=== PATIENT | female | born 1975 | race Caucasian/White ===

== ENCOUNTER 2018-05-03 20:43 | Emergency (ER) | payer OTHER ==
[2018-05-03 20:47] VITALS: TEMP 98.3
[2018-05-03] MEDS ORDERED: MORPHINE SULFATE 4 MG/ML SYRINGE IV STA (21:07)
--- NOTE | 2018-05-03 21:16 | ED ---
Abdominal Pain HPI - General Chief Complaint: Abdominal Pain Stated Complaint: Lower left abd pain Time Seen by Provider: 05/03/18 20:52 Source: patient Mode of arrival: ambulatory Limitations: no limitations - History of Present Illness MD Complaint: abdominal pain Onset/Timin -: week(s) Location: LLQ Radiation: none Migration to: no migration Severity: moderate Quality: sharp Consistency: intermittent Improves With: nothing Worsens With: nothing Associated Symptoms: denies other symptoms - Related Data Home Medications Medication Instructions Recorded Confirmed Rosuvastatin [Crestor] 20 mg PO DAILY 11/25/14 05/03/18 Trandolapril [Mavik] 2 mg PO DAILY 11/25/14 05/03/18 metFORMIN HCL 1,000 mg PO BID 11/25/14 05/03/18 INSULIN LISPRO (humaLOG) [humaLOG] 16 units SQ AC-BRKFST 05/03/18 05/03/18 INSULIN LISPRO (humaLOG) [humaLOG] 18 units SQ AC-LUNCH 05/03/18 05/03/18 INSULIN LISPRO (humaLOG) [humaLOG] 20 unit SQ AC-SUPPER 05/03/18 05/03/18 Ibuprofen [Advil] 400 mg PO Q8H 05/03/18 05/03/18 Insulin Glargine [Lantus] 65 unit SQ HS 05/03/18 05/03/18 Allergies Allergy/AdvReac Type Severity Reaction Status Date / Time No Known Allergies Allergy Verified 05/03/18 21:02 Review of Systems ROS Statement: Those systems with pertinent positive or pertinent negative responses have been documented in the HPI. ROS Other: All systems not noted in ROS Statement are negative. Constitutional: Denies: fever, chills Respiratory: Denies: cough, dyspnea Cardiovascular: Denies: chest pain, palpitations Gastrointestinal: Reports: as per HPI, abdominal pain. Denies: nausea, vomiting , diarrhea, melena, hematochezia Genitourinary: Reports: abnormal menses (Patient states her last cycle was heavier than usual). Denies: dysuria, frequency, hematuria, discharge Musculoskeletal: Denies: back pain Skin: Denies: rash Neurological: Denies: headache Past Medical History Past Medical History: Diabetes Mellitus, Hyperlipidemia, Hypertension History of Any Multi-Drug Resistant Organisms: None Reported Past Surgical History: Section Past Psychological History: No Psychological Hx Reported Smoking Status: Never smoker Past Alcohol Use History: None Reported Past Drug Use History: None Reported General Exam Limitations: no limitations General appearance: alert, in no apparent distress Head exam: Present: atraumatic, normocephalic Eye exam: Present: normal appearance. Absent: scleral icterus, conjunctival injection ENT exam: Present: normal oropharynx Respiratory exam: Present: normal lung sounds bilaterally. Absent: respiratory distress, wheezes, rales, rhonchi, stridor Cardiovascular Exam: Present: regular rate, normal rhythm, normal heart sounds. Absent: systolic murmur, diastolic murmur, rubs, gallop GI/Abdominal exam: Present: soft, tenderness (There is minimal left lower quadrant tenderness with palpation. No rebound or guarding), normal bowel sounds. Absent: distended, guarding, rebound, rigid, mass, pulsatile mass, hernia Extremities exam: Present: normal inspection, normal capillary refill. Absent: pedal edema, calf tenderness Back exam: Present: normal inspection. Absent: CVA tenderness (R), CVA tenderness (L) Neurological exam: Present: alert Skin exam: Present: warm, dry, intact, normal color Course Vital Signs 05/03/18 05/03/18 05/03/18 20:45 21:34 23:09 Temperature 98.3 F Pulse Rate 107 H 99 Respiratory 20 16 Rate Blood Pressure 162/122 158/93 148/95 O2 Sat by Pulse 98 100 Oximetry 05/04/18 00:12 Temperature Pulse Rate 98 Respiratory 16 Rate Blood Pressure 144/87 O2 Sat by Pulse 100 Oximetry Medical Decision Making - Lab Data Result diagrams: 05/03/18 21:22 05/03/18 21:22 Lab Results 05/03/18 05/03/18 05/03/18 Range/Units 21:22 21:22 21:22 WBC (3.8-10.6) k/uL RBC (3.80-5.40) m/uL Hgb (11.4-16.0) gm/dL Hct (34.0-46.0) % MCV (80.0-100.0) fL MCH (25.0-35.0) pg MCHC (31.0-37.0) g/dL RDW (11.5-15.5) % Plt Count (150-450) k/uL Neutrophils % % Lymphocytes % % Monocytes % % Eosinophils % % Basophils % % Neutrophils # (1.3-7.7) k/uL Lymphocytes # (1.0-4.8) k/uL Monocytes # (0-1.0) k/uL Eosinophils # (0-0.7) k/uL Basophils # (0-0.2) k/uL Hypochromasia Anisocytosis Microcytosis Sodium 137 (137-145) mmol/L Potassium 4.0 (3.5-5.1) mmol/L Chloride 102 (98-107) mmol/L Carbon Dioxide 30 (22-30) mmol/L Anion Gap 5 mmol/L BUN 9 (7-17) mg/dL Creatinine 0.56 (0.52-1.04) mg/dL Est GFR (CKD-EPI)AfAm >90 (>60 ml/min/1.73 sqM) Est GFR (CKD-EPI)NonAf >90 (>60 ml/min/1.73 sqM) Glucose 337 H (74-99) mg/dL POC Glucose (mg/dL) (75-99) mg/dL POC Glu Vacuum Drier Operator ID Calcium 9.3 (8.4-10.2) mg/dL Total Bilirubin 0.4 (0.2-1.3) mg/dL AST 18 (14-36) U/L ALT 29 (9-52) U/L Alkaline Phosphatase 117 (38-126) U/L Total Protein 7.1 (6.3-8.2) g/dL Albumin 4.0 (3.5-5.0) g/dL Amylase 63 (30-110) U/L Lipase 341 H (23-300) U/L Urine Color Yellow Urine Appearance Clear (Clear) Urine pH 6.0 (5.0-8.0) Ur Specific [place] 1.028 (1.001-1.035) Urine Protein Trace H (Negative) Urine Glucose (UA) 4+ H (Negative) Urine Ketones Negative (Negative) Urine Blood Negative (Negative) Urine Nitrite Negative (Negative) Urine Bilirubin Negative (Negative) Urine Urobilinogen <2.0 (<2.0) mg/dL Ur Leukocyte Esterase Negative (Negative) Urine RBC 1 (0-5) /hpf Urine WBC 1 (0-5) /hpf Ur Squamous Epith Cells 5 H (0-4) /hpf Urine HCG, Qual Not Detected (Not Detectd) 05/03/18 05/04/18 Range/Units 21:22 00:11 WBC 9.7 (3.8-10.6) k/uL RBC 4.97 (3.80-5.40) m/uL Hgb 11.6 (11.4-16.0) gm/dL Hct 35.9 (34.0-46.0) % MCV 72.3 L (80.0-100.0) fL MCH 23.4 L (25.0-35.0) pg MCHC 32.3 (31.0-37.0) g/dL RDW 16.0 H (11.5-15.5) % Plt Count 312 (150-450) k/uL Neutrophils % 81 % Lymphocytes % 13 % Monocytes % 4 % Eosinophils % 1 % Basophils % 0 % Neutrophils # 7.9 H (1.3-7.7) k/uL Lymphocytes # 1.3 (1.0-4.8) k/uL Monocytes # 0.4 (0-1.0) k/uL Eosinophils # 0.1 (0-0.7) k/uL Basophils # 0.0 (0-0.2) k/uL Hypochromasia Slight Anisocytosis Slight Microcytosis Moderate Sodium (137-145) mmol/L Potassium (3.5-5.1) mmol/L Chloride (98-107) mmol/L Carbon Dioxide (22-30) mmol/L Anion Gap mmol/L BUN (7-17) mg/dL Creatinine (0.52-1.04) mg/dL Est GFR (CKD-EPI)AfAm (>60 ml/min/1.73 sqM) Est GFR (CKD-EPI)NonAf (>60 ml/min/1.73 sqM) Glucose (74-99) mg/dL POC Glucose (mg/dL) 253 H (75-99) mg/dL POC Glu Vacuum Drier Operator ID Odalis Zarco Calcium (8.4-10.2) mg/dL Total Bilirubin (0.2-1.3) mg/dL AST (14-36) U/L ALT (9-52) U/L Alkaline Phosphatase (38-126) U/L Total Protein (6.3-8.2) g/dL Albumin (3.5-5.0) g/dL Amylase (30-110) U/L Lipase (23-300) U/L Urine Color Urine Appearance (Clear) Urine pH (5.0-8.0) Ur Specific [place] (1.001-1.035) Urine Protein (Negative) Urine Glucose (UA) (Negative) Urine Ketones (Negative) Urine Blood (Negative) Urine Nitrite (Negative) Urine Bilirubin (Negative) Urine Urobilinogen (<2.0) mg/dL Ur Leukocyte Esterase (Negative) Urine RBC (0-5) /hpf Urine WBC (0-5) /hpf Ur Squamous Epith Cells (0-4) /hpf Urine HCG, Qual (Not Detectd) Disposition Clinical Impression: Hypertension, Abdominal pain, Hyperglycemia Disposition: HOME SELF-CARE Condition: Fair Instructions (If sedation given, give patient instructions): Abdominal Pain (ED ), Hypertension (ED), Diabetic Hyperglycemia (ED) Is patient prescribed a controlled substance at d/c from ED?: No Referrals: None,Stated [Primary Care Provider] - 1-2 days Neida Calle MD [REFERRING] - 1-2 days
[2018-05-03 21:38] LABS: Appearance,Urine Clear (Clear); Bilirubin,Urine Negative (Negative); Blood,Urine Negative (Negative); Color,Urine Yellow; Glucose,Urine (UA) 4+ (Negative); Ketones,Urine Negative (Negative); Leukocyte Esterase,Urine Negative (Negative); Nitrite,Urine Negative (Negative); Protein,Urine Trace (Negative); RBC,Urine 1 /hpf (0-5); Specific Gravity,Urine 1.028 (1.001-1.035); Squamous Epithelial Cell,Urine 5 /hpf (0-4); Urobilinogen,Urine <2.0 mg/dL (<2.0); WBC,Urine 1 /hpf (0-5)
[2018-05-03 21:42] LABS: Anisocytosis Slight; Basophils % (A) 0 %; Eosinophils # (A) 0.1 k/uL (0-0.7); Eosinophils % (A) 1 %; HCT 35.9 % (34.0-46.0); HGB 11.6 gm/dL (11.4-16.0); Hypochromasia Slight; Lymphocytes # (A) 1.3 k/uL (1.0-4.8); Lymphocytes % (A) 13 %; MCH 23.4 pg (25.0-35.0); MCHC 32.3 g/dL (31.0-37.0); MCV 72.3 fL (80.0-100.0); Mean Platelet Volume 5.9; Microcytosis Moderate; Monocytes # (A) 0.4 k/uL (0-1.0); Monocytes % (A) 4 %; Neutrophils # (A) 7.9 k/uL (1.3-7.7); Neutrophils % (A) 81 %; Platelet Count 312 k/uL (150-450); RBC 4.97 m/uL (3.80-5.40); WBC 9.7 k/uL (3.8-10.6)
[2018-05-03 21:44] LABS: ALT 29 U/L (9-52); AST 18 U/L (14-36); Alkaline Phosphatase 117 U/L (38-126); Amylase 63 U/L (30-110); Anion Gap 5 mmol/L; Blood Urea Nitrogen 9 mg/dL (7-17); Calcium 9.3 mg/dL (8.4-10.2); Carbon Dioxide 30 mmol/L (22-30); Chloride 102 mmol/L (98-107); Glucose 337 mg/dL (74-99); Lipase 341 U/L (23-300); Sodium 137 mmol/L (137-145); Total Bilirubin 0.4 mg/dL (0.2-1.3); Total Protein 7.1 g/dL (6.3-8.2)
[2018-05-03] MEDS ORDERED: SODIUM CHLORIDE 0.9% 1,000 ML IV ONE ×2 (21:48)
[2018-05-03] MEDS ORDERED: INSULIN REGULAR 100 UNIT/ML VIAL SQ STA (21:48)
--- NOTE | 2018-05-03 21:57 | US ---
EXAMINATION TYPE: US transvaginal DATE OF EXAM: 05/03/2018 COMPARISON: NONE CLINICAL HISTORY: Pain. LLQ pain for 1 week, 2 c-sections, possible PCOS TECHNIQUE: TV Date of LMP: 04/26/2018 EXAM MEASUREMENTS: Uterus: 8.2 x 5.2 x 4.0cm Endometrial Stripe: 0.4m Right Ovary: 2.8 x 2.0 x 2.5cm Left Ovary: 3.1 x 2.2 x 2.4cm 1. Uterus: Anteverted wnl 2. Endometrium: wnl 3. Right Ovary: 1.7cm follicle seen 4. Left Ovary: wnl Spectral, color and waveform doppler imaging shows good arterial and venous flow within the ovaries ; there is no evidence for ovarian torsion. 5. Bilateral Adnexa: wnl 6. Posterior cul-de-sac: wnl IMPRESSION: Negative exam. No evidence of ovarian torsion. Simple right ovarian cyst.
--- NOTE | 2018-05-03 23:08 | CT ---
EXAMINATION TYPE: CT abdomen pelvis wo con DATE OF EXAM: 05/03/2018 COMPARISON: None HISTORY: LLQ pain x1 week CT DLP: 907 mGycm Automated exposure control for dose reduction was used. TECHNIQUE: Multiple axial sections were obtained from the diaphragm to the floor the pelvis with no contrast. FINDINGS: Lung bases are clear. There is no pleural effusion. Heart size is normal. There is no pericardial eff usion. Liver spleen pancreas appear normal. Bile ducts are not dilated. There are clips from cholecystectomy . Stomach appears normal. There is no adrenal mass. The kidneys have normal size and contour. There is no hydronephrosis. There are 2 mm calculi in the lower pole left kidney. There is no retroperitoneal adenopathy. Ureters are not dilated. Bladder distends smoothly. There is no inguinal hernia. There is no free fluid in the pelvis. There i s no evidence of free air. There is umbilical hernia that contains fat. Appendix appears normal. The bony structures are intact. Lumbar disc spaces are normal. Bony pelvis is intact. Uterus is antev erted. There is probably a 1 mm calculus lower pole right kidney. IMPRESSION: NONOBSTRUCTING TINY BILATERAL RENAL CALCULI. SMALL UMBILICAL HERNIA. I DO NOT SEE A CAUSE FOR LEFT LO WER QUADRANT PAIN.
[2018-05-03 23:10] VITALS: RESP 16
[2018-05-04 00:12] LABS: Glucose,Whole Blood 253 mg/dL (75-99)
[2018-05-04 00:14] VITALS: BP 144/87; PULSE 98
== END 2018-05-04 00:17 | disposition home or self-care (01) ==
LOC: EC 20:43
DX: I10 Essential (primary) hypertension (principal); R10.32 Left lower quadrant pain; E11.65 Type 2 diabetes mellitus with hyperglycemia; E78.5 Hyperlipidemia, unspecified; Z79.4 Long term (current) use of insulin; Z79.899 Other long term (current) drug therapy
CPT/HCPCS: 99284; 96374; 36415 ×2; 80053; 82150; 83690; 85025; 81003; 81025; 93975; 76830; 74176; 96361; J2270

== ENCOUNTER 2019-07-18 21:18 | Emergency (ER) | payer OTHER ==
[2019-07-18 21:24] VITALS: TEMP 98.8
[2019-07-18] MEDS ORDERED: ONDANSETRON 4 MG/2 ML VIAL IVP STA (21:50)
[2019-07-18] MEDS ORDERED: SODIUM CHLORIDE 0.9% 1,000 ML IV STA (21:50)
[2019-07-18] MEDS ORDERED: MAG HYDROX/AL HYDROX/SIMETH 30 ML, HYOSCYAMINE ELIXIR 10 ML, LIDOCAINE VISCOUS 2% 10 ML PO STA ×3 (21:50)
[2019-07-18] MEDS ORDERED: FAMOTIDINE 20 MG/2 ML VIAL IV STA (21:50)
[2019-07-18 22:19] LABS: Anisocytosis Slight; Basophils % (A) 0 %; Eosinophils # (A) 0.1 k/uL (0-0.7); Eosinophils % (A) 1 %; HCT 34.9 % (34.0-46.0); HGB 11.5 gm/dL (11.4-16.0); Lymphocytes # (A) 1.3 k/uL (1.0-4.8); Lymphocytes % (A) 12 %; MCH 22.6 pg (25.0-35.0); MCHC 33.1 g/dL (31.0-37.0); MCV 68.5 fL (80.0-100.0); Mean Platelet Volume 7.7; Microcytosis Marked; Monocytes # (A) 0.4 k/uL (0-1.0); Monocytes % (A) 4 %; Neutrophils % (A) 83 %; Platelet Count 336 k/uL (150-450); RBC 5.09 m/uL (3.80-5.40); RDW 16.5 % (11.5-15.5); WBC 10.8 k/uL (3.8-10.6)
--- NOTE | 2019-07-18 22:23 | ED ---
General Adult HPI - General Chief complaint: Abdominal Pain Stated complaint: ABD PAIN Time Seen by Provider: 07/18/19 21:26 Source: patient, RN notes reviewed Mode of arrival: ambulatory Limitations: no limitations - History of Present Illness Initial comments: 44-year-old female with a past medical history of diabetes, hyperlipidemia, hypertension, cholecystectomy, section presents to the emergency department for a chief complaint of abdominal pain. Patient states that she has had upper abdominal pain for about 12 hours. States it comes and goes and is more of a cramping pain. States she has had nausea when the pain gets severe but otherwise has not had nausea or vomiting. States bowel movements have been normal and she is passing gas. Denies fevers or chills. Describes the pain as a sharp cramping pain that comes and goes. Patient did take some Pepcid earlier which did help. Patient has no other complaints at this time including shortness of breath, chest pain, nausea or vomiting, headache, or visual changes. - Related Data Home Medications Medication Instructions Recorded Confirmed Rosuvastatin [Crestor] 20 mg PO DAILY 11/25/14 07/18/19 Trandolapril [Mavik] 2 mg PO DAILY 11/25/14 07/18/19 metFORMIN HCL 1,000 mg PO BID 11/25/14 07/18/19 INSULIN LISPRO (humaLOG) [humaLOG] 14 units SQ AC-BRKFST 05/03/18 07/18/19 INSULIN LISPRO (humaLOG) [humaLOG] 16 units SQ AC-LUNCH 05/03/18 07/18/19 INSULIN LISPRO (humaLOG) [humaLOG] 18 unit SQ AC-SUPPER 05/03/18 07/18/19 Insulin Glargine [Lantus] 60 unit SQ HS 05/03/18 07/18/19 Aspirin EC [Ecotrin Low Dose] 81 mg PO DAILY 07/18/19 07/18/19 Previous Rx's Medication Instructions Recorded Pantoprazole [Protonix] 40 mg PO DAILY #7 tablet. 07/18/19 Allergies Allergy/AdvReac Type Severity Reaction Status Date / Time No Known Allergies Allergy Verified 07/18/19 22:27 Review of Systems ROS Statement: Those systems with pertinent positive or pertinent negative responses have been documented in the HPI. ROS Other: All systems not noted in ROS Statement are negative. Past Medical History Past Medical History: Diabetes Mellitus, Hyperlipidemia, Hypertension History of Any Multi-Drug Resistant Organisms: None Reported Past Surgical History: Section, Cholecystectomy Past Psychological History: No Psychological Hx Reported Smoking Status: Never smoker Past Alcohol Use History: None Reported Past Drug Use History: None Reported General Exam Limitations: no limitations General appearance: alert, in no apparent distress Head exam: Present: atraumatic, normocephalic, normal inspection Eye exam: Present: normal appearance, PERRL, EOMI. Absent: scleral icterus, conjunctival injection, periorbital swelling ENT exam: Present: normal exam, mucous membranes moist Neck exam: Present: normal inspection, full ROM. Absent: tenderness, meningismus, lymphadenopathy Respiratory exam: Present: normal lung sounds bilaterally. Absent: respiratory distress, wheezes, rales, rhonchi, stridor Cardiovascular Exam: Present: regular rate, normal rhythm, normal heart sounds. Absent: systolic murmur, diastolic murmur, rubs, gallop, clicks GI/Abdominal exam: Present: soft, tenderness (Generalized upper abdominal tenderness. no guarding or rebound), normal bowel sounds. Absent: distended, guarding, rebound, rigid Neurological exam: Present: alert Psychiatric exam: Present: normal affect, normal mood Course Vital Signs 07/18/19 21:22 Temperature 98.8 F Pulse Rate 107 H Respiratory 20 Rate Blood Pressure 159/88 O2 Sat by Pulse 99 Oximetry EKG Findings - EKG Comments: EKG Findings:: Normal sinus rhythm, ventricular rate 95, OH interval 134, QTc 469 Medical Decision Making - Medical Decision Making Vitals are stable. Mild tachycardia likely secondary to pain. Patient does have mild generalized upper abdominal tenderness without guarding or rebound. History of cholecystectomy. CMP is unremarkable. Hyperglycemia however patient does have a history of diabetes, anion gap is normal at 11, CO2 24. Urinalysis unremarkable. X-ray did not show an acute abdomen however there was a significant amount of stool. Patient was given a GI cocktail which did improve her symptoms. She could have gastritis and will be started on Protonix. I will also recommend a course of magnesium citrate as cramping pain could be related to constipation and bowel spasm. Patient will follow up with GI. I did recommend she return to the emergency Department if she developed worsening symptoms or fevers for further evaluation including possible CAT scan. Patient is in agreement with this. - Lab Data Result diagrams: 07/18/19 22:06 07/18/19 22:06 Lab Results 07/18/19 07/18/19 07/18/19 Range/Units 22:06 22:06 22:06 WBC 10.8 H (3.8-10.6) k/uL RBC 5.09 (3.80-5.40) m/uL Hgb 11.5 (11.4-16.0) gm/dL Hct 34.9 (34.0-46.0) % MCV 68.5 L (80.0-100.0) fL MCH 22.6 L (25.0-35.0) pg MCHC 33.1 (31.0-37.0) g/dL RDW 16.5 H (11.5-15.5) % Plt Count 336 (150-450) k/uL Neutrophils % 83 % Lymphocytes % 12 % Monocytes % 4 % Eosinophils % 1 % Basophils % 0 % Neutrophils # 9.0 H (1.3-7.7) k/uL Lymphocytes # 1.3 (1.0-4.8) k/uL Monocytes # 0.4 (0-1.0) k/uL Eosinophils # 0.1 (0-0.7) k/uL Basophils # 0.0 (0-0.2) k/uL Anisocytosis Slight Microcytosis Marked Sodium (137-145) mmol/L Potassium (3.5-5.1) mmol/L Chloride (98-107) mmol/L Carbon Dioxide (22-30) mmol/L Anion Gap mmol/L BUN (7-17) mg/dL Creatinine (0.52-1.04) mg/dL Est GFR (CKD-EPI)AfAm (>60 ml/min/1.73 sqM) Est GFR (CKD-EPI)NonAf (>60 ml/min/1.73 sqM) Glucose (74-99) mg/dL Calcium (8.4-10.2) mg/dL Total Bilirubin (0.2-1.3) mg/dL AST (14-36) U/L ALT (4-34) U/L Alkaline Phosphatase (38-126) U/L Troponin I (0.000-0.034) ng/mL Total Protein (6.3-8.2) g/dL Albumin (3.5-5.0) g/dL Amylase (30-110) U/L Lipase (23-300) U/L Urine Color Light Yellow Urine Appearance Clear (Clear) Urine pH 5.5 (5.0-8.0) Ur Specific [place] 1.017 (1.001-1.035) Urine Protein Negative (Negative) Urine Glucose (UA) 2+ H (Negative) Urine Ketones Negative (Negative) Urine Blood Negative (Negative) Urine Nitrite Negative (Negative) Urine Bilirubin Negative (Negative) Urine Urobilinogen <2.0 (<2.0) mg/dL Ur Leukocyte Esterase Negative (Negative) Urine HCG, Qual Not Detected (Not Detectd) 07/18/19 07/18/19 Range/Units 22:06 22:06 WBC (3.8-10.6) k/uL RBC (3.80-5.40) m/uL Hgb (11.4-16.0) gm/dL Hct (34.0-46.0) % MCV (80.0-100.0) fL MCH (25.0-35.0) pg MCHC (31.0-37.0) g/dL RDW (11.5-15.5) % Plt Count (150-450) k/uL Neutrophils % % Lymphocytes % % Monocytes % % Eosinophils % % Basophils % % Neutrophils # (1.3-7.7) k/uL Lymphocytes # (1.0-4.8) k/uL Monocytes # (0-1.0) k/uL Eosinophils # (0-0.7) k/uL Basophils # (0-0.2) k/uL Anisocytosis Microcytosis Sodium 135 L (137-145) mmol/L Potassium 3.8 (3.5-5.1) mmol/L Chloride 100 (98-107) mmol/L Carbon Dioxide 24 (22-30) mmol/L Anion Gap 11 mmol/L BUN 11 (7-17) mg/dL Creatinine 0.59 (0.52-1.04) mg/dL Est GFR (CKD-EPI)AfAm >90 (>60 ml/min/1.73 sqM) Est GFR (CKD-EPI)NonAf >90 (>60 ml/min/1.73 sqM) Glucose 215 H (74-99) mg/dL Calcium 9.1 (8.4-10.2) mg/dL Total Bilirubin 0.2 (0.2-1.3) mg/dL AST 22 (14-36) U/L ALT 17 (4-34) U/L Alkaline Phosphatase 106 (38-126) U/L Troponin I <0.012 (0.000-0.034) ng/mL Total Protein 7.3 (6.3-8.2) g/dL Albumin 4.0 (3.5-5.0) g/dL Amylase 58 (30-110) U/L Lipase 268 (23-300) U/L Urine Color Urine Appearance (Clear) Urine pH (5.0-8.0) Ur Specific [place] (1.001-1.035) Urine Protein (Negative) Urine Glucose (UA) (Negative) Urine Ketones (Negative) Urine Blood (Negative) Urine Nitrite (Negative) Urine Bilirubin (Negative) Urine Urobilinogen (<2.0) mg/dL Ur Leukocyte Esterase (Negative) Urine HCG, Qual (Not Detectd) Disposition Clinical Impression: Abdominal pain Disposition: HOME SELF-CARE Condition: Good Instructions (If sedation given, give patient instructions): Abdominal Pain (ED) Additional Instructions: Please take Protonix as directed. Follow up with GI in 1-2 days. If you have worsening symptoms or develop fevers return to the emergency department for additional evaluation. Prescriptions: Pantoprazole [Protonix] 40 mg PO DAILY #7 tablet.dr Is patient prescribed a controlled substance at d/c from ED?: No Referrals: Neida Calle MD [Primary Care Provider] - 1-2 days Nohelia Roberts MD [STAFF PHYSICIAN] - 1-2 days Time of Disposition: 23:15
[2019-07-18 22:24] LABS: Appearance,Urine Clear (Clear); Bilirubin,Urine Negative (Negative); Blood,Urine Negative (Negative); Color,Urine Light Yellow; Glucose,Urine (UA) 2+ (Negative); Ketones,Urine Negative (Negative); Leukocyte Esterase,Urine Negative (Negative); Nitrite,Urine Negative (Negative); PH, Urine 5.5 (5.0-8.0); Protein,Urine Negative (Negative); Specific Gravity,Urine 1.017 (1.001-1.035); Urobilinogen,Urine <2.0 mg/dL (<2.0)
[2019-07-18 22:32] LABS: ALT 17 U/L (4-34); AST 22 U/L (14-36); African American GFR (CKD) >90 (>60 ml/min/1.73 sqM); Alkaline Phosphatase 106 U/L (38-126); Amylase 58 U/L (30-110); Anion Gap 11 mmol/L; Blood Urea Nitrogen 11 mg/dL (7-17); Calcium 9.1 mg/dL (8.4-10.2); Carbon Dioxide 24 mmol/L (22-30); Chloride 100 mmol/L (98-107); Glucose 215 mg/dL (74-99); Non-African American GFR(CKD) >90 (>60 ml/min/1.73 sqM); Potassium 3.8 mmol/L (3.5-5.1); Sodium 135 mmol/L (137-145); Total Bilirubin 0.2 mg/dL (0.2-1.3); Total Protein 7.3 g/dL (6.3-8.2)
--- NOTE | 2019-07-18 22:52 | XR ---
EXAMINATION TYPE: XR KUB DATE OF EXAM: 07/18/2019 COMPARISON: NONE HISTORY: Abdominal pain TECHNIQUE: 2 views upright FINDINGS: Bowel gas pattern is normal. There is no sign of intestinal obstruction or pneumoperitoneum . Fecal pattern is normal. There is no evidence of a mass. IMPRESSION: Nonacute abdomen.
[2019-07-18] MEDS ORDERED: MAGNESIUM CITRATE 296 ML BOTTLE PO ONE (23:10)
[2019-07-18 23:33] VITALS: BP 115/70; PULSE 87; RESP 16
== END 2019-07-18 23:32 | disposition home or self-care (01) ==
LOC: EC 21:18
DX: E11.65 Type 2 diabetes mellitus with hyperglycemia (principal); R10.817 Generalized abdominal tenderness; R00.0 Tachycardia, unspecified; E78.5 Hyperlipidemia, unspecified; I10 Essential (primary) hypertension; Z79.4 Long term (current) use of insulin; Z79.82 Long term (current) use of aspirin; Z79.899 Other long term (current) drug therapy; Z90.49 Acquired absence of other specified parts of digestive tract
CPT/HCPCS: 36415; 93005; 80053; 82150; 83690; 84484; 85025; 81003; 81025; 74018; 99284; 96374; 96375; 96361; J2405

== ENCOUNTER 2019-07-23 14:21 | Emergency (ER) | payer OTHER ==
[2019-07-23] MEDS ORDERED: SODIUM CHLORIDE 0.9% 500 ML 500 ML IV STA (15:24)
[2019-07-23] MEDS ORDERED: PANTOPRAZOLE 40 MG/10 ML VIAL IVP STA (15:24)
[2019-07-23] MEDS ORDERED: MAG HYDROX/AL HYDROX/SIMETH 30 ML, HYOSCYAMINE ELIXIR 10 ML, LIDOCAINE VISCOUS 2% 10 ML PO STA ×3 (15:24)
--- NOTE | 2019-07-23 15:27 | ED ---
General Adult HPI - General Chief complaint: Abdominal Pain Stated complaint: ABD PAIN Time Seen by Provider: 07/23/19 14:35 Source: patient, RN notes reviewed, old records reviewed Mode of arrival: ambulatory Limitations: no limitations - History of Present Illness Initial comments: This is a 43-year-old female who presents emergency department stating she started having epigastric abdominal pain after every time she ate since Sunday. Patient states she was seen in emergency department on Sunday and was told she was mildly constipated. Patient says since then she has taken magnesium citrate and had normal bowel movements. Patient states the pain continues to come on after eating. Patient states today it came on it lasted about an hour while she is at work and she had to leave because it radiated around her abdomen to her back. Patient states she has a long history of severe gastric reflux. Patient denies any pain with movement. Patient denies any nausea vomiting or diarrhea. Patient denies any chest pain difficulty breathing shortest breath. Patient states currently the pain is gone. Patient states usually last hour and a half .patient also has had a cholecystectomy - Related Data Home Medications Medication Instructions Recorded Confirmed Rosuvastatin [Crestor] 20 mg PO DAILY 11/25/14 07/18/19 Trandolapril [Mavik] 2 mg PO DAILY 11/25/14 07/18/19 metFORMIN HCL 1,000 mg PO BID 11/25/14 07/18/19 INSULIN LISPRO (humaLOG) [humaLOG] 14 units SQ AC-BRKFST 05/03/18 07/18/19 INSULIN LISPRO (humaLOG) [humaLOG] 16 units SQ AC-LUNCH 05/03/18 07/18/19 INSULIN LISPRO (humaLOG) [humaLOG] 18 unit SQ AC-SUPPER 05/03/18 07/18/19 Insulin Glargine [Lantus] 60 unit SQ HS 05/03/18 07/18/19 Aspirin EC [Ecotrin Low Dose] 81 mg PO DAILY 07/18/19 07/18/19 Previous Rx's Medication Instructions Recorded Pantoprazole [Protonix] 40 mg PO DAILY #7 tablet. 07/18/19 Pantoprazole Sodium [Protonix] 20 mg PO DAILY #30 tablet. 07/23/19 Allergies Allergy/AdvReac Type Severity Reaction Status Date / Time No Known Allergies Allergy Verified 07/18/19 22:27 Review of Systems ROS Statement: Those systems with pertinent positive or pertinent negative responses have been documented in the HPI. ROS Other: All systems not noted in ROS Statement are negative. Past Medical History Past Medical History: Diabetes Mellitus, Hyperlipidemia, Hypertension History of Any Multi-Drug Resistant Organisms: None Reported Past Surgical History: Section, Cholecystectomy Past Psychological History: No Psychological Hx Reported Smoking Status: Never smoker Past Alcohol Use History: None Reported Past Drug Use History: None Reported General Exam - General Exam Comments Initial Comments: GENERAL: Patient is well-developed and well-nourished. Patient is nontoxic and well- hydrated and is in no acute distress ENT: Neck is soft and supple. No significant lymphadenopathy is noted. Oropharynx i s clear. Moist mucous membranes. Neck has full range of motion without eliciting any pain. EYES: The sclera were anicteric and conjunctiva were pink and moist. Extraocular movements were intact and pupils were equal round and reactive to light. Eyelids were unremarkable. PULMONARY: Unlabored respirations. Good breath sounds bilaterally. No audible rales rhonchi or wheezing was noted. CARDIOVASCULAR: There is a regular rate and rhythm without any murmurs gallops or rubs. ABDOMEN: Minimal epigastric and right upper quadrant tenderness SKIN: Skin is clear with no lesions or rashes and otherwise unremarkable. NEUROLOGIC: Patient is alert and oriented x3. Cranial nerves II through XII are grossly intact. Motor and sensory are also intact. Normal speech, volume and content. Symmetrical smile. MUSCULOSKELETAL: Normal extremities with adequate strength and full range of motion. LYMPHATICS: No significant lymphadenopathy is noted PSYCHIATRIC: Normal psychiatric evaluation. Limitations: no limitations Course Vital Signs 07/23/19 14:35 Temperature 98.1 F Pulse Rate 91 Respiratory 18 Rate Blood Pressure 144/92 O2 Sat by Pulse 100 Oximetry Medical Decision Making - Medical Decision Making EKG shows normal sinus rhythm at 75 bpm ND interval 156 QRS is 94 QT interval 396 QTC is 442. Patient's EKG shows no ST segment elevation or depression. I went back to reevaluate the patient after she received a GI cocktail she felt complete relief of her symptoms. - Lab Data Result diagrams: 07/23/19 15:34 07/23/19 15:34 Lab Results 07/23/19 07/23/19 07/23/19 Range/Units 15:34 15:34 15:45 WBC 8.8 (3.8-10.6) k/uL RBC 5.10 (3.80-5.40) m/uL Hgb 11.1 L (11.4-16.0) gm/dL Hct 35.3 (34.0-46.0) % MCV 69.2 L (80.0-100.0) fL MCH 21.7 L (25.0-35.0) pg MCHC 31.4 (31.0-37.0) g/dL RDW 15.9 H (11.5-15.5) % Plt Count 396 (150-450) k/uL Neutrophils % 81 % Lymphocytes % 13 % Monocytes % 3 % Eosinophils % 2 % Basophils % 0 % Neutrophils # 7.1 (1.3-7.7) k/uL Lymphocytes # 1.2 (1.0-4.8) k/uL Monocytes # 0.3 (0-1.0) k/uL Eosinophils # 0.2 (0-0.7) k/uL Basophils # 0.0 (0-0.2) k/uL Hypochromasia Moderate Microcytosis Marked Sodium 136 L (137-145) mmol/L Potassium 4.2 (3.5-5.1) mmol/L Chloride 100 (98-107) mmol/L Carbon Dioxide 26 (22-30) mmol/L Anion Gap 10 mmol/L BUN 9 (7-17) mg/dL Creatinine 0.58 (0.52-1.04) mg/dL Est GFR (CKD-EPI)AfAm >90 (>60 ml/min/1.73 sqM) Est GFR (CKD-EPI)NonAf >90 (>60 ml/min/1.73 sqM) Glucose 176 H (74-99) mg/dL Calcium 9.3 (8.4-10.2) mg/dL Total Bilirubin 0.3 (0.2-1.3) mg/dL AST 25 (14-36) U/L ALT 21 (4-34) U/L Alkaline Phosphatase 112 (38-126) U/L Total Protein 7.6 (6.3-8.2) g/dL Albumin 4.2 (3.5-5.0) g/dL Amylase 57 (30-110) U/L Lipase 222 (23-300) U/L Urine Color Light Yellow Urine Appearance Clear (Clear) Urine pH 6.0 (5.0-8.0) Ur Specific Kinsey 1.013 (1.001-1.035) Urine Protein Negative (Negative) Urine Glucose (UA) Negative (Negative) Urine Ketones Trace H (Negative) Urine Blood Negative (Negative) Urine Nitrite Negative (Negative) Urine Bilirubin Negative (Negative) Urine Urobilinogen <2.0 (<2.0) mg/dL Ur Leukocyte Esterase Negative (Negative) Disposition Clinical Impression: Gastritis Disposition: HOME SELF-CARE Condition: Good Instructions (If sedation given, give patient instructions): Gastritis (ED) Prescriptions: Pantoprazole Sodium [Protonix] 20 mg PO DAILY #30 tablet.dr Is patient prescribed a controlled substance at d/c from ED?: No Referrals: Neida Calle MD [Primary Care Provider] - 1-2 days Time of Disposition: 16:39
[2019-07-23 15:49] LABS: Basophils % (A) 0 %; Eosinophils # (A) 0.2 k/uL (0-0.7); Eosinophils % (A) 2 %; HCT 35.3 % (34.0-46.0); HGB 11.1 gm/dL (11.4-16.0); Hypochromasia Moderate; Lymphocytes # (A) 1.2 k/uL (1.0-4.8); Lymphocytes % (A) 13 %; MCH 21.7 pg (25.0-35.0); MCHC 31.4 g/dL (31.0-37.0); MCV 69.2 fL (80.0-100.0); Mean Platelet Volume 7.5; Microcytosis Marked; Monocytes # (A) 0.3 k/uL (0-1.0); Monocytes % (A) 3 %; Neutrophils # (A) 7.1 k/uL (1.3-7.7); Neutrophils % (A) 81 %; Platelet Count 396 k/uL (150-450); RDW 15.9 % (11.5-15.5); WBC 8.8 k/uL (3.8-10.6)
[2019-07-23 15:57] LABS: ALT 21 U/L (4-34); AST 25 U/L (14-36); African American GFR (CKD) >90 (>60 ml/min/1.73 sqM); Albumin 4.2 g/dL (3.5-5.0); Alkaline Phosphatase 112 U/L (38-126); Amylase 57 U/L (30-110); Anion Gap 10 mmol/L; Blood Urea Nitrogen 9 mg/dL (7-17); Calcium 9.3 mg/dL (8.4-10.2); Carbon Dioxide 26 mmol/L (22-30); Chloride 100 mmol/L (98-107); Glucose 176 mg/dL (74-99); Non-African American GFR(CKD) >90 (>60 ml/min/1.73 sqM); Potassium 4.2 mmol/L (3.5-5.1); Sodium 136 mmol/L (137-145); Total Bilirubin 0.3 mg/dL (0.2-1.3); Total Protein 7.6 g/dL (6.3-8.2)
[2019-07-23 16:04] LABS: Appearance,Urine Clear (Clear); Bilirubin,Urine Negative (Negative); Blood,Urine Negative (Negative); Color,Urine Light Yellow; Glucose,Urine (UA) Negative (Negative); Ketones,Urine Trace (Negative); Leukocyte Esterase,Urine Negative (Negative); Nitrite,Urine Negative (Negative); Protein,Urine Negative (Negative); Specific Gravity,Urine 1.013 (1.001-1.035); Urobilinogen,Urine <2.0 mg/dL (<2.0)
[2019-07-23 17:23] VITALS: BP 166/83; PULSE 74; RESP 16; TEMP 98.2
== END 2019-07-23 17:10 | disposition home or self-care (01) ==
LOC: EC 14:21
DX: K29.70 Gastritis, unspecified, without bleeding (principal); E11.9 Type 2 diabetes mellitus without complications; E78.5 Hyperlipidemia, unspecified; I10 Essential (primary) hypertension; Z79.82 Long term (current) use of aspirin; Z79.4 Long term (current) use of insulin; Z79.899 Other long term (current) drug therapy; Z90.49 Acquired absence of other specified parts of digestive tract
CPT/HCPCS: 36415; 93005; 80053; 82150; 83690; 85025; 81003; 96374; 96361; 99284; C9113

== ENCOUNTER → 2020-06-10 | Outpatient (CLI) | payer OTHER ==
--- NOTE | 2020-06-10 13:48 | MR ---
EXAMINATION TYPE: MR shoulder RT wo con DATE OF EXAM: 06/10/2020 COMPARISON: None HISTORY: Right Shoulder Pain, Hurts to raise above head. Fell onto Shoulder 3.5 Weeks ago. TECHNIQUE: Multiplanar, multisequence imaging of the right shoulder is performed without contrast. FINDINGS: There is abnormal marrow edema involving the superior margin of the humeral head. Findings are suspicious for for bone contusion with mild superior humeral head compression fracture nondisplac ed. Bony labrum are grossly intact. The scapular notch has a normal appearance. Hypertrophic change of th e AC joint noted. Small amount fluid is seen in the subacromial subdeltoid bursa and there is mild in creased signal near the insertion of both the supraspinatus and infraspinatus tendons compatible with tendinosis. Suspect partial through thickness tear measuring 4 mm in transverse dimension near the i nsertion anterior fibers supraspinatus tendon. Bicipital tendon is situated in the bicipital groove. IMPRESSION: 1. Bone contusion with acute fracture mildly displaced superior humeral head with extension into the greater tuberosity. 2. Tendinosis distal margin supraspinatus and infraspinatus tendons with suspected 4 mm partial tear near the insertion of the supraspinatus tendon. No retraction.
== END ==
LOC: RADMRIMAIN 10:44
PROVIDERS: ATTEND Internal Medicine
DX: S42.251A Displaced fracture of greater tuberosity of right humerus, initial encounter for closed fracture (principal); M67.813 Other specified disorders of tendon, right shoulder